=== PATIENT | male | born 1935 | race Caucasian/White ===

== ENCOUNTER 2016-10-19 16:59 | Inpatient (IN) | payer MEDICARE, BC ==
[~2016-10-19] VITALS: Ht 177.8 cm; Wt 79.4 kg
[2016-10-19 17:19] VITALS: BP 124/107
[2016-10-19 17:45] VITALS: BP 68/45
[2016-10-19 18:18] VITALS: BP 73/36
[2016-10-19 18:48] LABS: MEAN CORPUSCULAR HEMOGLOBIN 31.8 PG (27.0-31.0); MEAN CORPUSCULAR HGB CONC 30.8 G/DL (32.0-36.0); MEAN CORPUSCULAR VOLUME 103 FL (80-99); MEAN PLATELET VOLUME 6.5 FL (6.5-10.1); PLATELET COUNT 179 K/UL (150-450); RED BLOOD COUNT 3.16 M/UL (4.70-6.10); RED CELL DISTRIBUTION WIDTH 15.5 % (11.6-14.8); WHITE BLOOD COUNT 2.7 K/UL (4.8-10.8)
[2016-10-19] MEDS ORDERED: Lidocaine 1% MPF 10mg/ml 5ml ONE (18:50)
[2016-10-19 19:04] VITALS: BP 74/34
--- NOTE | 2016-10-19 19:07 | Emergency Room Report ---
History of Present Illness General Chief Complaint: Altered Level of Consciousness Source: EMS Present Illness HPI 81 YO M BIBEMS for ?AMS, hypotension. Patient missed last dialysis. Was vomiting today. gave HTN medication as scheduled. No other history available as no other family member presents. EMS endorses HTN, DM, ESRD on HD. Allergies: Coded Allergies: No Known Allergies (Unverified , 10/19/16) Patient History Past Medical History: DM, renal disease Past Surgical History: unable to obtain Social History: Denies: alcohol use, drug use, smoking Reviewed Nursing Documentation: PMH: Agreed, PSxH: Agreed Nursing Documentation-PMH Hx Cardiac Problems: Yes - CHF Hx Hypertension: Yes Hx Pacemaker: Yes Hx COPD: Yes Hx Diabetes: Yes - ESRD Hx Gastrointestinal Problems: Yes Hx Dialysis: Yes History Of Psychiatric Problem: No Hx Neurological Problems: No Hx Cerebrovascular Accident: Yes Review of Systems All Other Systems: limited Physical Exam Vital Signs Date Time Temp Pulse Resp B/P Pulse Ox O2 Delivery O2 Flow Rate FiO2 10/19/16 16:59 107 18 61/43 78 Room Air 10/19/16 19:04 15.0 Sp02 EP Interpretation: reviewed, abnormal General Appearance: normal inspection, well appearing, no apparent distress, alert, GCS 15, non-toxic Head: normocephalic, atraumatic Eyes: bilateral eye EOMI, bilateral eye PERRL ENT: normal ENT inspection, hearing grossly normal, normal voice Neck: normal inspection, full range of motion, supple, no bony tend Respiratory: normal inspection, lungs clear, normal breath sounds, no respiratory distress, no retraction, no wheezing Cardiovascular #1: regular rate, rhythm, no edema Gastrointestinal: normal inspection, normal bowel sounds, non tender, soft, no guarding, no hernia Genitourinary: no CVA tenderness Musculoskeletal: normal inspection, back normal, normal range of motion, Hitesh' s Sign negative Neurologic: normal inspection, alert, oriented x3, responsive, 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 Hypotensive. Afebrile. DDx includes CVA, ACS, infection, metabolic abnormality Patient is oriented x time and place and person. Comprehensive physical exam completed, atraumatic. Unreliable history from patient. Labs include CBC chem panel, CT head, EKG 12 lead and constant cardiac rhythm strip monitoring, IV established. Airway adequately maintained by patient upon arrival. EKG reveals ventricular paced rhythm Physician spent 345 minutes of direct critical care time monitoring patient's respiratory, cardiac and neurological status, reassessment, review of imaging, labs and discussion with attending hospitalist. Care also included dw famly, PMD, start of levophed pressor Does not include procedures Central Line Central Line : Consent: Emergent Central Line Lumen: triple Maximal Sterile Barrier Tech: yes cap, yes mask, yes sterile gown, yes sterile gloves, yes large sterile sheet, yes hand hygiene, yes chlorhexidine prep No Max Barrier Tech Because: emergency insertion Central Line Postion: femoral (R) Anesthesia: Lidocaine Complications: none Central Line Post Position: sutured, good blood return Attempts: One Patient Tolerated: Well Complications: None Medical Decision Making Medicare Attestation I Joan Woodson MD hereby attest that the medical record entry for date of service, 09/12/16 accurately reflects signatures/notations that I made in my capacity as MD when I treated/diagnosed the above listed Medicare beneficiary. I attest that this information is true, accurate and complete to the best of my knowledge. I understand that any falsification, omission, or concealment of material fact may subject me to administrative, civil, or criminal liability. This patient warrants hospital admission for extreme of age and has a condition that cannot be treated as outpatient. Diagnostic Impression: Primary Impression: Altered level of consciousness Additional Impression: Hypotension Qualified Codes: I95.9 - Hypotension, unspecified ER Course 81 YO M with hypotension, AMS. Afebrile. RNs unable to get peripheral Iv access Crash right femoral central line obtained as patient critically ill (see procedure note) IVF bolus and IV levophed gtt started PLAN Cardiac, O2 monitor, labs, CT head, ECG, likely admission EKG Diagnostic Results Rate: other - ventricular paced ST Segments: no acute changes ASA given to the pt in ED: No Rhythm Strip Diag. Results EP Interpretation: yes Rate: 96 Rhythm: NSR, no PVC's, no ectopy Chest X-Ray Diagnostic Results EP Interpretation: Yes Findings: no consolidation, no effusion, no pneumothorax, no acute cardiopulmonary disease Number of Views: 1 Reevaluation Time: 20:21 Last Vital Signs Date Time Temp Pulse Resp B/P Pulse Ox O2 Delivery O2 Flow Rate FiO2 10/19/16 19:04 103 18 74/34 73 Non-Rebreather 15.0 Status: improved Reevaluation Impression Labs: No leuks. Stabl;e H&H. Troponin is 1.5 (Trop baseline is 0.8 per PMD). HyperK 5.1 Serum Cr 6.5 Assessment: NSTEMI as ?cause of hypoxia, hypotension. IVF NOT bolused as history of CHF and EF 15% as per recent ECHO Patient on Elliquis per PMD PLAN Central line placed Plavix given for NSTEMI - no lovenox as patient on elliquis. Coags pending Cx placed to Dr Mejía for Cardiology - agrees with plan for Plavix HyperK tx with albuterol, Calcium Needs HD Patient maintaining O2 sat on Bipap Hypotension supported by levophed pressors Endorsed to Dr Jarquin for ICU admission for NSTEMI, CKD, hypotnesion, hypoxia Disposition: ADMITTED INPATIENT Condition: Critical Referrals: NON PHYSICIAN (PCP) JOAN WOODSON M.D. Oct 19, 2016 19:07
[2016-10-19 19:10] LABS: ALANINE AMINOTRANSFERASE 5 U/L (3-41); ALBUMIN/GLOBULIN RATIO 1.1 (1.0-2.7); ANION GAP 18 (5-15); ASPARTATE AMINO TRANSFERASE 13 U/L (5-40); CALCIUM 9.1 mg/dL (8.6-10.2); CARBON DIOXIDE 23 mEQ/L (20-30); CHLORIDE 97 mEQ/L (98-107); CREATININE 6.5 mg/dL (0.7-1.2); HEMOLYSIS 4; POTASSIUM 5.1 mEQ/L (3.4-4.9); SODIUM 138 mEQ/L (135-145); TOTAL PROTEIN 5.2 g/dL (6.6-8.7)
[2016-10-19 19:20] LABS: CKMB 9.8 ng/mL (< 6.7)
[2016-10-19 19:22] LABS: TROPONIN I 1.51 ng/mL (<=0.30)
[2016-10-19] MEDS ORDERED: Albuterol ud Inhalation HHN ONE (19:30)
[2016-10-19] MEDS ORDERED: Calcium Gluconate 1gm/10ml vial IVP ONE (19:30)
[2016-10-19 19:59] VITALS: BP 102/54
[2016-10-19] MEDS ORDERED: Enoxaparin 80mg Inj SUBQ ONE (20:15)
[2016-10-19] MEDS ORDERED: Miralax 17gm pkt ORAL PRN (21:15)
[2016-10-19] MEDS ORDERED: DuoNeb 0.5-3(2.5)mg/3ml neb HHN PRN (21:15)
[2016-10-19] MEDS ORDERED: PRO-AMATINE2.5 MG ORAL (22:06)
[2016-10-19] MEDS ORDERED: ELIQUIS2.5 MG PO (22:06)
[2016-10-19] MEDS ORDERED: AMIODARONE HCL100 MG ORAL (22:06)
[2016-10-19] MEDS ORDERED: NORCO 7.5/3251 EA ORAL (22:06)
[2016-10-19] MEDS ORDERED: DICYCLOMINE HCL25 GM MC (22:06)
[2016-10-19] MEDS ORDERED: ZOFRAN4 M1 ORAL (22:06)
[2016-10-19] MEDS ORDERED: CLONAZEPAM0.5 M1 PO (22:06)
[2016-10-19] MEDS ORDERED: AMITRIPTYLINE H10 MG ORAL (22:06)
[2016-10-19] MEDS ORDERED: PENTOXIFYLLINE400 MG ORAL (22:06)
[2016-10-19] MEDS ORDERED: LINZESS145 MCG PO (22:06)
[2016-10-19] MEDS ORDERED: FUROSEMIDE20 M1 ORAL (22:06)
[2016-10-19] MEDS ORDERED: TEMAZEPAM22.5 MG PO (22:06)
[2016-10-19 22:37] LABS: ANISOCYTOSIS 1+; BAND NEUTROPHILS % (MANUAL) 18 % (0-8); BASOPHILS % (MANUAL) 1 % (0-2); EOSINOPHILS % (MANUAL) 0 % (0-3); HYPOCHROMASIA 1+; LYMPHOCYTES % (MANUAL) 22 % (20-45); NEUTROPHILS % (MANUAL) 49 % (45-75); PLATELET ESTIMATE ADEQUATE; PLATELET MORPHOLOGY NORMAL; TOTAL CELLS COUNTED 100
[2016-10-19 23:09] VITALS: BP 105/86
--- NOTE | 2016-10-19 23:39 | Consultation ---
Consult Note Consult Note PAST MEDICAL HISTORY:He has been on Eliquis for chronic atrial fibrillationchronic pleural effusion status post PleurX placement bilaterally. 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 FAMILY AND SOCIAL HISTORY: Consistent with coronary artery disease and diabetes of his parents. He does not smoke. Denies alcohol or drug abuse currently. He is with 3 children. He is retired. ALLERGIES: Allergic to Remeron, being confused and having severe headache on it. Cephalexin, difficulty with breathing and erythema all over his body, but he is able to tolerate Rocephin with no difficulty. nstemi? demand recrrent n/v esrd on hd 2 times per week cad sc/p cabg subbsequent pci osteal lad adn osteal ramus aicha hx of bioperthetic avr afib ic implantation chronic pleurae effusion with pleurex catheter encepahlopaty serial enzyme ekg bipapa suppoort faily wish full code adn suppoer t may need intubation if intolerant of bipap blood cx may need empiric abx kylah jami manzano d/w eer SANTIAGO Yu Oct 19, 2016 23:39
[2016-10-20] VITALS (96 sets, daily range): BP systolic 58–124; BP diastolic 19–96
[2016-10-20] MEDS ORDERED: Levophed 4mg/4mL Inj IV ONE ×2 (01:35→05:17)
[2016-10-20] MEDS ORDERED: Gabapentin 300 MG/6 ML Soln ORAL SCH (03:00)
[2016-10-20 06:09] LABS: MEAN CORPUSCULAR HEMOGLOBIN 32.5 PG (27.0-31.0); MEAN CORPUSCULAR HGB CONC 31.1 G/DL (32.0-36.0); MEAN CORPUSCULAR VOLUME 105 FL (80-99); MEAN PLATELET VOLUME 6.7 FL (6.5-10.1); PLATELET COUNT 268 K/UL (150-450); RED BLOOD COUNT 3.19 M/UL (4.70-6.10); RED CELL DISTRIBUTION WIDTH 16.2 % (11.6-14.8); WHITE BLOOD COUNT 11.8 K/UL (4.8-10.8)
[2016-10-20] MEDS: NovoLOG Insulin Flexpen SUBQ SCH ×4 (06:30→20:47)
[2016-10-20 07:01] LABS: TROPONIN I 8.98 ng/mL (<=0.30)
[2016-10-20 07:10] LABS: ANION GAP 24 (5-15); CALCIUM 9.3 mg/dL (8.6-10.2); CARBON DIOXIDE 20 mEQ/L (20-30); CHLORIDE 94 mEQ/L (98-107); CREATININE 6.7 mg/dL (0.7-1.2); HEMOLYSIS 4; PHOSPHORUS 6.1 mg/dL (2.5-4.8); POTASSIUM 5.5 mEQ/L (3.4-4.9); SODIUM 138 mEQ/L (135-145)
[2016-10-20] MEDS ORDERED: Heparin 25,000u/D5W 500ml 500 ML IV SCH (07:30)
[2016-10-20] MEDS: Aspirin Baby 81mg ORAL SCH (08:29)
[2016-10-20] MEDS ORDERED: Heparin 5000 units/ml inj IV ONE (08:30)
[2016-10-20] MEDS: Heparin 25,000 units/D5W 500ml (ACS/MI) IV SCH (08:31)
[2016-10-20] MEDS ORDERED: Heparin 5000 units/ml inj SUBQ SCH (09:00)
--- NOTE | 2016-10-20 10:56 | Pulmonolgy Critical Care Note ---
Critical Care - Asmt/Plan Problems: (1) Multi-organ failure with heart failure (2) Septic shock (3) ESRF (end stage renal failure) (4) Recurrent right pleural effusion (5) AICD (automatic cardioverter/defibrillator) present (6) Hypotension (7) Altered level of consciousness Respiratory: monitor respiratory rate, adjust FIO2, CXR, other - pt refsuisng bipap Cardiac: continue pressors, continue to monitor HR/BP Renal: F/U I&O, keep IV fluid Infectious Disease: check cultures, continue antibiotics Gastrointestinal: continue feedings/current rate Endocrine: monitor blood sugar, continue sliding scale insulin Hematologic: monitor H/H, transfuse if hgb<8.5 Neurologic: PRN Ativan, keep patient comfortable Affect: PRN ativan Prophylaxis: Protonix, Heparin Disposition: keep in ICU Notes Reviewed: renal Discussed with: nurses, consultants, case management social workerclinical team manager - Objective Last 24 Hour Vital Signs Date Time Temp Pulse Resp B/P Pulse Ox O2 Delivery O2 Flow Rate FiO2 10/20/16 08:57 93/56 10/20/16 07:00 105 25 100/56 95 Non-Rebreather 100 10/20/16 06:45 104 30 106/56 95 Non-Rebreather 100 10/20/16 06:35 Non-Rebreather 15.0 100 10/20/16 06:30 108 26 84/50 95 Non-Rebreather 100 10/20/16 06:15 108 31 96/63 95 Non-Rebreather 100 10/20/16 06:00 106 31 87/55 95 Non-Rebreather 100 10/20/16 05:45 103 31 98/61 94 Non-Rebreather 100 10/20/16 05:30 105 28 88/56 94 Non-Rebreather 100 10/20/16 05:23 58/35 10/20/16 05:15 78 27 58/35 94 Non-Rebreather 100 10/20/16 05:00 94 30 87/58 94 Non-Rebreather 100 10/20/16 04:45 94 31 89/58 94 Non-Rebreather 100 10/20/16 04:30 88 28 87/54 92 Non-Rebreather 100 10/20/16 04:15 74 28 103/80 94 Non-Rebreather 100 10/20/16 04:00 71 1/12/17 04:00 98.1 70 31 99/68 94 Non-Rebreather 100 10/20/16 03:45 70 28 79/50 92 Non-Rebreather 100 10/20/16 03:30 81 27 77/44 92 Non-Rebreather 100 10/20/16 03:15 84 26 96/58 90 Non-Rebreather 100 10/20/16 03:00 85 28 85/57 90 Non-Rebreather 100 10/20/16 02:45 85 27 93/56 93 Non-Rebreather 100 10/20/16 02:30 84 31 81/62 93 Non-Rebreather 100 10/20/16 02:15 91 30 73/41 90 Non-Rebreather 100 10/20/16 02:00 95 27 92/68 91 Non-Rebreather 100 10/20/16 01:45 98 28 72/52 91 Non-Rebreather 100 10/20/16 01:44 96/54 10/20/16 01:30 97 28 67/28 91 Non-Rebreather 100 10/20/16 01:15 93 31 79/19 93 Non-Rebreather 100 10/20/16 01:00 101 28 81/22 93 Non-Rebreather 100 10/20/16 00:45 100 25 104/71 92 Non-Rebreather 100 10/20/16 00:30 101 27 83/49 92 Non-Rebreather 100 10/20/16 00:15 97 28 99/70 91 Non-Rebreather 100 10/20/16 00:00 97.5 100 26 99/66 93 Non-Rebreather 100 10/20/16 00:00 100 10/19/16 23:24 98 32 105/86 94 Bi-pap 15.0 100 10/19/16 23:09 98 32 105/86 94 Bi-pap 15.0 100 10/19/16 23:00 Non-Rebreather 15.0 100 10/19/16 23:00 97 Non-Rebreather 15.0 100 10/19/16 20:20 107/72 10/19/16 20:16 95 31 100 Bi-pap 100 10/19/16 20:04 96 31 100 Bi-pap 100 10/19/16 19:59 101 31 102/54 100 Mechanical Ventilator 15.0 10/19/16 19:45 92/64 10/19/16 19:30 97 36 93 Facial 100 10/19/16 19:30 Non-Rebreather 10/19/16 19:30 Non-Rebreather 10/19/16 19:19 73/34 10/19/16 19:04 103 18 74/34 73 Non-Rebreather 15.0 10/19/16 18:18 93 18 73/36 93 Room Air 10/19/16 17:45 93 18 68/45 92 Room Air 10/19/16 17:19 70 18 124/107 92 Room Air 10/19/16 16:59 107 18 61/43 78 Room Air Status: awake Condition: critical, grave HEENT: atraumatic Neck: full ROM Lungs: clear, chest wall tender Heart: HR/BP stable, regular Abdomen: soft, non-tender, active bowel sounds Extremities: no C/C/E Accucheck: 159 Critical Care - Subjective ROS Limited/Unobtainable: Yes ICU Day: 2 Interval Events: 81 year old male with hx of ESRF, end stage Heart disease with ICD, apparently he started with nausea and vomiting a few days ago and missed his HD. Then he developed dyspnea, paramedics were called and he was taken to ER of [facility] He was hypotensive, started on levophed and bipap. Currently pt is refusing bipap. I get the PMHx through my conversation with the PMd at [facility]. Condition: critical EKG Rhythm: Sinus Rhythm FI02: 100 Sputum Amount: None Drips: Levophed, heparin I&O: Intake and Output 10/19/16 10/20/16 19:00 07:00 Intake Total 1692.5 ml Balance 1692.5 ml Intake Oral 30 ml IV Total 1662.5 ml CXR: large right effusion, chest tube/ Labs: Laboratory Tests Test 10/19/16 18:30 10/20/16 04:30 10/20/16 08:45 White Blood Count 2.7 K/UL (4.8-10.8) L 11.8 K/UL (4.8-10.8) #H Red Blood Count 3.16 M/UL (4.70-6.10) L 3.19 M/UL (4.70-6.10) L Hemoglobin 10.0 G/DL (14.2-18.0) L 10.4 G/DL (14.2-18.0) L Hematocrit 32.6 % (42.0-52.0) L 33.4 % (42.0-52.0) L Mean Corpuscular Volume 103 FL (80-99) H 105 FL (80-99) H Mean Corpuscular Hemoglobin 31.8 PG (27.0-31.0) H 32.5 PG (27.0-31.0) H Mean Corpuscular Hemoglobin Concent 30.8 G/DL (32.0-36.0) L 31.1 G/DL (32.0-36.0) L Red Cell Distribution Width 15.5 % (11.6-14.8) H 16.2 % (11.6-14.8) H Platelet Count 179 K/UL (150-450) 268 K/UL (150-450) Mean Platelet Volume 6.5 FL (6.5-10.1) 6.7 FL (6.5-10.1) Neutrophils (%) (Auto) % (45.0-75.0) % (45.0-75.0) Lymphocytes (%) (Auto) % (20.0-45.0) % (20.0-45.0) Monocytes (%) (Auto) % (1.0-10.0) % (1.0-10.0) Eosinophils (%) (Auto) % (0.0-3.0) % (0.0-3.0) Basophils (%) (Auto) % (0.0-2.0) % (0.0-2.0) Differential Total Cells Counted 100 Neutrophils % (Manual) 49 % (45-75) Lymphocytes % (Manual) 22 % (20-45) Monocytes % (Manual) 10 % (1-10) Eosinophils % (Manual) 0 % (0-3) Basophils % (Manual) 1 % (0-2) Band Neutrophils 18 % (0-8) H Platelet Estimate Adequate Platelet Morphology Normal Hypochromasia 1+ Anisocytosis 1+ Sodium Level 138 mEQ/L (135-145) 138 mEQ/L (135-145) Potassium Level 5.1 mEQ/L (3.4-4.9) H 5.5 mEQ/L (3.4-4.9) H Chloride Level 97 mEQ/L (98-107) L 94 mEQ/L (98-107) L Carbon Dioxide Level 23 mEQ/L (20-30) 20 mEQ/L (20-30) Anion Gap 18 (5-15) H 24 (5-15) H Blood Urea Nitrogen 46 mg/dL (7-23) H 50 mg/dL (7-23) H Creatinine 6.5 mg/dL (0.7-1.2) H 6.7 mg/dL (0.7-1.2) H Estimat Glomerular Filtration Rate mL/min (>60) mL/min (>60) Glucose Level 87 mg/dL (74-106) 220 mg/dL (74-106) #H Lactic Acid Level 1.90 mmol/L (0.66-2.22) Calcium Level 9.1 mg/dL (8.6-10.2) 9.3 mg/dL (8.6-10.2) Total Bilirubin 0.4 mg/dL (0.0-1.2) Aspartate Amino Transf (AST/SGOT) 13 U/L (5-40) Alanine Aminotransferase (ALT/SGPT) 5 U/L (3-41) Alkaline Phosphatase 94 U/L (40-129) Total Creatine Kinase 70 U/L (38-174) Creatine Kinase MB 9.8 ng/mL (< 6.7) H Creatine Kinase MB Relative Index 14.0 Troponin I 1.51 ng/mL (<=0.30) *H 8.98 ng/mL (<=0.30) *H Total Protein 5.2 g/dL (6.6-8.7) L Albumin 2.8 g/dL (3.5-5.2) L 2.9 g/dL (3.5-5.2) L Globulin 2.4 g/dL Albumin/Globulin Ratio 1.1 (1.0-2.7) Digoxin Level < 0.3 ng/mL (0.5-2.0) L Phosphorus Level 6.1 mg/dL (2.5-4.8) H Activated Partial Thromboplast Time 37 SEC (23-33) H MATT WALKER Oct 20, 2016 10:56
[2016-10-20 11:05] LABS: INR 1.2 (0.9-1.1)
--- NOTE | 2016-10-20 11:08 | Wound Care Consultation ---
Wound Assessment Wound Assessment #1: Wound Number: #1 Wound Present on Admission: Yes New Wound: No Status Change of Wound: No Wound Location Body Site Modif: mid Wound Location Body Site: sacral Wound Type: pressure ulcer Abhay Test: Does not Abhay Pressure Ulcer Stage: deep tissue injury Wound Thickness: Full Thickness Wound Length: 9.0 Wound Width: 8.0 Wound Depth: utd Percent of Wound Switzer/Red: 50 Percent of Wound Purple/Maroon: 50 Wound Drainage Amount: None Wound Drainage Odor: None/Absent Tissue Surrounding Wound: Erythemic Wound General Appearance: Reddened Wound Assessment #2: Wound Number: #2 Wound Present on Admission: Yes New Wound: No Status Change of Wound: No Wound Location Body Site Modif: left Wound Location Body Site: arm Wound Type: traumatic injury Abhay Test: Does not Abhay Wound Thickness: Full Thickness Wound Length: 1.0 Wound Width: 1.0 Wound Depth: 0.2 Percent of Wound Switzer/Red: 100 Wound Drainage Amount: None Wound Drainage Odor: None/Absent Tissue Surrounding Wound: Erythemic Wound General Appearance: Reddened Wound Assessment #3: Wound Number: #3 Wound Present on Admission: Yes New Wound: No Status Change of Wound: No Wound Location Body Site Modif: left Wound Location Body Site: knee Wound Type: traumatic injury Abhay Test: Does not Abhay Wound Thickness: Full Thickness Wound Length: 1.0 Wound Width: 1.0 Wound Depth: 0.2 Percent of Wound Switzer/Red: 50 Percent of Wound Purple/Maroon: 50 Wound Drainage Amount: None Wound Drainage Odor: None/Absent Tissue Surrounding Wound: Erythemic Wound General Appearance: Reddened Wound Assessment #4: Wound Number: #4 Wound Present on Admission: Yes New Wound: No Status Change of Wound: No Wound Location Body Site Modif: left Wound Location Body Site: knee Wound Type: scab - thick scab Abhay Test: Does not Abhay Wound Thickness: Full Thickness Wound Length: 1.0 Wound Width: 1.0 Wound Depth: utd Percent of Wound Bed Yellow/Wh: 50 Percent of Wound Black/Brown: 50 Wound Drainage Odor: None/Absent Tissue Surrounding Wound: Erythemic Wound General Appearance: Blackened Wound Assessment #5: Wound Number: #5 Wound Present on Admission: Yes New Wound: No Status Change of Wound: No Wound Location Body Site Modif: left Wound Location Body Site: toe - 3rd Wound Type: other - Diabetic ulcer. Abhay Test: Does not Abhay Wound Thickness: Full Thickness Wound Length: 1.0 Wound Width: 1.0 Wound Depth: utd Percent of Wound Black/Brown: 100 Wound Drainage Amount: None Wound Drainage Odor: None/Absent Tissue Surrounding Wound: Intact Wound General Appearance: Necrotic Wound Assessment #6: Wound Number: #6 Wound Present on Admission: Yes New Wound: No Status Change of Wound: No Wound Location Body Site Modif: right Wound Location Body Site: toe - 2nd Wound Type: other - Diabetic ulcer Abhay Test: Does not Abhay Wound Thickness: Full Thickness Wound Length: 1.5 Wound Width: 1.0 Wound Depth: utd Percent of Wound Black/Brown: 100 Wound Drainage Amount: None Wound Drainage Odor: None/Absent Tissue Surrounding Wound: Intact Wound General Appearance: Blackened Wound Assessment #7: Wound Number: #7 Wound Present on Admission: Yes New Wound: No Status Change of Wound: No Wound Location Body Site Modif: right Wound Location Body Site: toe - 3rd Wound Type: other - Diabetic ulcer Abhay Test: Does not Abhay Wound Thickness: Full Thickness Wound Length: 0.3 Wound Width: 0.3 Wound Depth: utd Percent of Wound Black/Brown: 100 Wound Drainage Amount: None Wound Drainage Odor: None/Absent Tissue Surrounding Wound: Intact Wound General Appearance: Blackened - scab Wound Assessment #8: Wound Number: #9 Wound Present on Admission: Yes New Wound: No Status Change of Wound: No Wound Location Body Site Modif: right Wound Location Body Site: toe - 5th Wound Type: other - Diabetic ulcer. Abhay Test: Does not Abhay Wound Thickness: Full Thickness Wound Length: 1.0 Wound Width: 1.0 Wound Depth: utd Percent of Wound Black/Brown: 100 Wound Drainage Amount: None Wound Drainage Odor: None/Absent Tissue Surrounding Wound: Intact Wound General Appearance: Blackened - scab. Wound Assessment #9: Wound Number: #9 Wound Present on Admission: Yes Status Change of Wound: No Wound Location Body Site Modif: right, lower Wound Location Body Site: foot Wound Type: other - scattered red skin throughout foot ,skin intact Wound Drainage Amount: None Wound Drainage Odor: None/Absent Tissue Surrounding Wound: Intact Wound General Appearance: Reddened Wound Assessment #10: Wound Number: #10 Wound Present on Admission: Yes New Wound: No Status Change of Wound: No Wound Location Body Site Modif: left, lower Wound Location Body Site: foot Wound Type: other - scattered red skin throughout foot , skin intact Wound Drainage Amount: None Wound Drainage Odor: None/Absent Tissue Surrounding Wound: Intact Wound General Appearance: Reddened Wound Comment #1 Mid Sacral pressure ulcer Deep Tissue Injury. #2 Left forearm traumatic injury.(skin tear) #3 Left knee traumatic injury.(skin tear). #4 Left knee scab. #5 Left 3rd toe Diabetic Ulcer. #6 Right 2nd toe Diabetic Ulcer. #7 Right 3rd toe Diabetic Ulcer, #8 Right 5th toe Diabetic Ulcer. #9 Right foot scattered red skin, skin intact,dry #10 Left foot scattered red skin, skin intact,dry Recommendation. -Apply low air loss with AP. -Local wound care as ordered. -Keep dry,skin moisturized. -Keep clean and dry. -Turn and reposition. -Optimize nutrition. -Heel protectors. -Offload affected wound sites. -Assess and notify MD if any changes are noted. - HUANG HUSAIN Oct 20, 2016 11:08
[2016-10-20] MEDS: Pantoprazole Inj IVP SCH (11:29)
[2016-10-20] MEDS ORDERED: Vancomycin 1250mg/D5W 250ml IVPB ONE ×2 (13:00)
--- NOTE | 2016-10-20 13:43 | Diagnostic Imaging Report ---
Indications: Altered mental status Technique: Continuous helical CT imaging of the brain was performed with nonionic exposure control on a Siemens sensation [address] scanner. Axial and coronal images were reconstructed at 5 mm slice thickness and interval. CTDI volume(s): 70 mGy Total DLP: 1530 mGy-cm Findings: Comparison: None Confluent low attenuation is present in the bilateral periventricular white matter. Wedge-shaped, peripherally based 3.5 cm area of low attenuation/parenchymal loss lateral aspect left parietal lobe. Ventricles, cisterns, and sulci are diffusely prominent. No evidence of mass or hemorrhage, mass effect, midline shift, hydrocephalus, or increased intracranial pressure. Bone window images are unremarkable. Visualized paranasal sinuses and mastoid air cells are clear. IMPRESSION: No evidence of acute intracranial pathology Subacute to chronic infarct left parietal lobe. Bilateral cerebral periventricular white matter low attenuation, nonspecific, likely chronic microvascular ischemic in nature. Atrophy This correlates with preliminary report generated overnight by Dr. Downs. The CT scanner at [facility] is accredited by the [employer] and the scans are performed using protocols designed to limit radiation exposure to as low as reasonably achievable to attain images of sufficient resolution adequate for diagnostic evaluation.
--- NOTE | 2016-10-20 14:13 | Consultation ---
Consult Note Consult Note asked to eval for dialysis management- 81 YO M BIBEMS for ?AMS, hypotension. Patient missed last dialysis. Was vomiting today. gave HTN medication as scheduled. No other history available as no other family member presents. EMS endorses HTN, DM, ESRD on HD. Patient History Past Medical History: DM, renal disease Hx Cardiac Problems: Yes - CHF Hx Hypertension: Yes Hx Pacemaker: Yes Hx COPD: Yes Hx Diabetes: Yes - ESRD Hx Gastrointestinal Problems: Yes Hx Dialysis: Yes Hx Cerebrovascular Accident: Yes h/o ESRD Not dialysed for a few days- In ICU - HypoTensive- daughter present- lethargic has 2 chest tubes- clamped- has 2 fistula on his arms - right usable Assessment/Plan status: (1) Multi-organ failure with heart failure (2) Septic shock (3) ESRF (end stage renal failure) (4) Recurrent right pleural effusion (5) AICD (automatic cardioverter/defibrillator) present (6) Hypotension (7) Altered level of consciousness Plan; HD today- continue per PMD, consultants- Poor Prognosis HUONG WALKER Oct 20, 2016 14:13
[2016-10-20] MEDS: Aztreonam Inj 0.25 GM in D5W 55 ML IVPB SCH ×2 (15:18→22:10)
--- NOTE | 2016-10-20 16:10 | Diagnostic Imaging Report ---
Indications: DYSPNEA Technique: Portable AP chest at 1355 Findings: Comparison: 08 100 Catheter compatible chest tube is now noted projecting over the right lung base, presumably within the pleural space. Right costophrenic angle blunting, lateral right pleural thickening, and haziness over right hemithorax compatible with pleural effusion all again noted. Blunting of left costophrenic angle compatible small pleural effusion now also noted. Cardiac silhouette remains enlarged. Bony vascular redistribution, bilateral interstitial infiltrates unchanged. IMPRESSION: Chest tube in region of basal aspect of right pleural space Persistence right pleural effusion suggesting chest tube malfunction versus loculation Development versus better demonstration of small left pleural effusion Background bilateral congestive changes unchanged
[2016-10-20] MEDS ORDERED: Tubing IV Secondary IV ONE (16:19)
[2016-10-20] MEDS ORDERED: D5W 275ml ONE (16:19)
--- NOTE | 2016-10-20 17:52 | Diagnostic Imaging Report ---
Indications: Status post left thoracentesis Technique: Portable upright AP chest at 1721 Findings: Comparison: 1355 Left pleural effusion has decreased. No pneumothorax identified. Right pleural-parenchymal changes unchanged. IMPRESSION: Decrease in left pleural effusion but no pneumothorax following left thoracentesis No other change from earlier exam
[2016-10-20 19:03] LABS: APPEARANCE, BODY FLUID CLEAR; BD FL SOURCE THORACENTESIS; BD FL VOLUME 600 mL; BODY FLUID NUCLEATED CELLS 67 /CUMM; BODY FLUID RBC 223 /CUMM; POLYMORPHONUCLEAR WBC 24 %
[2016-10-20 19:04] LABS: MONONUCLEAR WBC 62 %
--- NOTE | 2016-10-20 19:09 | History & Physical ---
History and Physical History & Physicial Dictated for Int Med-Dr Jarquin ICU no. [id number]. SYDNEY MOSCOSO Oct 20, 2016 19:09
--- NOTE | 2016-10-20 19:16 | Cardiology Progress Note ---
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 aicha 2011 hx of bioprosthetic avr afib icd implantation chronic pleural effusion with pleurex catheter encepahlopaty did not not toelrate bipap last ntie d/w rn on severl occcison presor starteds i did nto start dobutamin in light of mi trop thism am higer need further seril enzyme and ekg empirci abx d/w dr joe now off bipap seem to be oxygenating s/p drainage of pleurex catheter d/w fmail;y remain in critical state on pressor double concentrate all ivpb cxr personlally reviewd telde reviwed echo noted poor lv fucntion need to repeat ekg is on iv heparin resum amiodareon dc plavix keep on ecotrin off eleiquis is on heparin will need transfer to [facility] for cth once hemodyamically stable and once bed avialbel meds discussed with pts restar midodrine 45 min duration Subjective Cardiovascular: Denies: chest pain, lightheadedness, palpitations Respiratory: Reports: shortness of breath Gastrointestinal/Abdominal: Denies: abdominal pain Subjective eels adn looks better Objective Last 24 Hour Vital Signs Date Time Temp Pulse Resp B/P Pulse Ox O2 Delivery O2 Flow Rate FiO2 10/20/16 18:30 104 27 102/61 91 Nasal Cannula 2.0 10/20/16 18:15 103 27 103/62 88 Nasal Cannula 2.0 10/20/16 18:00 71 24 89/53 83 Nasal Cannula 2.0 10/20/16 17:45 70 25 89/53 83 Nasal Cannula 2.0 10/20/16 17:30 70 28 90/41 84 Nasal Cannula 2.0 10/20/16 17:15 70 24 90/41 84 Nasal Cannula 2.0 10/20/16 17:00 72 30 104/46 84 Nasal Cannula 2.0 10/20/16 16:45 71 27 104/46 84 Nasal Cannula 2.0 10/20/16 16:30 70 29 83/55 82 Nasal Cannula 2.0 10/20/16 16:15 68 28 83/55 81 Nasal Cannula 2.0 10/20/16 16:00 64 10/20/16 16:00 98.2 64 27 83/55 97 Nasal Cannula 2.0 10/20/16 15:45 70 26 83/55 81 Nasal Cannula 2.0 10/20/16 15:44 85/42 10/20/16 15:30 70 26 72/47 81 Nasal Cannula 2.0 10/20/16 15:20 Nasal Cannula 2.0 28 10/20/16 15:15 70 27 63/36 84 Nasal Cannula 2.0 10/20/16 15:00 70 28 87/54 100 Nasal Cannula 2.0 10/20/16 15:00 87/54 10/20/16 14:45 70 27 88/53 85 Nasal Cannula 2.0 10/20/16 14:30 69 25 85/56 85 Nasal Cannula 2.0 10/20/16 14:15 84 27 85/50 98 Nasal Cannula 2.0 10/20/16 14:00 84 27 85/50 94 Nasal Cannula 2.0 10/20/16 14:00 85/50 10/20/16 13:45 84 26 85/51 86 Nasal Cannula 2.0 10/20/16 13:30 85 28 85/52 86 Nasal Cannula 2.0 10/20/16 13:15 85 28 85/55 90 Nasal Cannula 2.0 10/20/16 13:00 85/50 10/20/16 13:00 70 28 85/50 90 Nasal Cannula 2.0 10/20/16 12:45 70 29 85/48 86 Nasal Cannula 2.0 10/20/16 12:30 85 29 91/57 90 Nasal Cannula 2.0 10/20/16 12:15 85 30 87/54 90 Nasal Cannula 2.0 10/20/16 12:09 90/59 10/20/16 12:00 98.7 85 28 92/63 86 Nasal Cannula 2.0 10/20/16 12:00 86 10/20/16 11:45 85 28 90/59 90 Nasal Cannula 2.0 10/20/16 11:30 85 29 93/57 90 Nasal Cannula 2.0 10/20/16 11:15 85 28 109/85 90 Nasal Cannula 2.0 10/20/16 11:13 113/94 10/20/16 11:00 86 30 113/94 90 Nasal Cannula 2.0 10/20/16 10:45 86 29 98/63 85 Nasal Cannula 2.0 10/20/16 10:30 87 26 95/60 85 Nasal Cannula 2.0 10/20/16 10:15 75 28 67/42 84 Nasal Cannula 2.0 10/20/16 10:00 88 30 78/51 92 Nasal Cannula 2.0 10/20/16 10:00 95/59 10/20/16 09:45 88 28 95/59 92 Nasal Cannula 2.0 10/20/16 09:30 88 29 89/58 92 Nasal Cannula 2.0 10/20/16 09:15 88 29 92/58 92 Nasal Cannula 2.0 10/20/16 09:00 88 30 92/57 92 Nasal Cannula 2.0 10/20/16 09:00 92/57 10/20/16 08:57 93/56 10/20/16 08:45 88 30 87/54 91 Room Air 10/20/16 08:30 88 29 91/56 92 Room Air 10/20/16 08:15 88 27 85/70 92 Room Air 10/20/16 08:00 105 10/20/16 08:00 97.6 106 31 88/57 74 Room Air 10/20/16 08:00 85/70 10/20/16 07:45 107 29 89/59 93 Room Air 10/20/16 07:30 106 30 93/41 80 Room Air 10/20/16 07:15 105 21 95/42 95 Non-Rebreather 100 10/20/16 07:00 105 25 100/56 95 Non-Rebreather 100 10/20/16 06:45 104 30 106/56 95 Non-Rebreather 100 10/20/16 06:35 Non-Rebreather 15.0 100 10/20/16 06:30 108 26 84/50 95 Non-Rebreather 100 10/20/16 06:15 108 31 96/63 95 Non-Rebreather 100 10/20/16 06:00 106 31 87/55 95 Non-Rebreather 100 10/20/16 05:45 103 31 98/61 94 Non-Rebreather 100 10/20/16 05:30 105 28 88/56 94 Non-Rebreather 100 10/20/16 05:23 58/35 10/20/16 05:15 78 27 58/35 94 Non-Rebreather 100 10/20/16 05:00 94 30 87/58 94 Non-Rebreather 100 10/20/16 04:45 94 31 89/58 94 Non-Rebreather 100 10/20/16 04:30 88 28 87/54 92 Non-Rebreather 100 10/20/16 04:15 74 28 103/80 94 Non-Rebreather 100 10/20/16 04:00 71 10/20/16 04:00 98.1 70 31 99/68 94 Non-Rebreather 100 10/20/16 03:45 70 28 79/50 92 Non-Rebreather 100 10/20/16 03:30 81 27 77/44 92 Non-Rebreather 100 10/20/16 03:15 84 26 96/58 90 Non-Rebreather 100 10/20/16 03:00 85 28 85/57 90 Non-Rebreather 100 10/20/16 02:45 85 27 93/56 93 Non-Rebreather 100 10/20/16 02:30 84 31 81/62 93 Non-Rebreather 100 10/20/16 02:15 91 30 73/41 90 Non-Rebreather 100 10/20/16 02:00 95 27 92/68 91 Non-Rebreather 100 10/20/16 01:45 98 28 72/52 91 Non-Rebreather 100 10/20/16 01:44 96/54 10/20/16 01:30 97 28 67/28 91 Non-Rebreather 100 10/20/16 01:15 93 31 79/19 93 Non-Rebreather 100 10/20/16 01:00 101 28 81/22 93 Non-Rebreather 100 10/20/16 00:45 100 25 104/71 92 Non-Rebreather 100 10/20/16 00:30 101 27 83/49 92 Non-Rebreather 100 10/20/16 00:15 97 28 99/70 91 Non-Rebreather 100 10/20/16 00:00 97.5 100 26 99/66 93 Non-Rebreather 100 10/20/16 00:00 100 10/19/16 23:24 98 32 105/86 94 Bi-pap 15.0 100 10/19/16 23:09 98 32 105/86 94 Bi-pap 15.0 100 10/19/16 23:00 Non-Rebreather 15.0 100 10/19/16 23:00 97 Non-Rebreather 15.0 100 10/19/16 20:20 107/72 10/19/16 20:16 95 31 100 Bi-pap 100 10/19/16 20:04 96 31 100 Bi-pap 100 10/19/16 19:59 101 31 102/54 100 Mechanical Ventilator 15.0 10/19/16 19:45 92/64 10/19/16 19:30 97 36 93 Facial 100 10/19/16 19:30 Non-Rebreather 10/19/16 19:30 Non-Rebreather 10/19/16 19:19 73/34 10/19/16 19:04 103 18 74/34 73 Non-Rebreather 15.0 General Appearance: no apparent distress, patient on isolation, other - on dialyssi Neck: supple, JVD Cardiovascular: normal rate, regular rhythm Respiratory/Chest: decreased breath sounds Abdomen: normal bowel sounds, non tender, soft Extremities: moderate edema Intake and Output 10/19/16 10/20/16 19:00 07:00 Intake Total 1692.5 ml Balance 1692.5 ml Intake Oral 30 ml IV Total 1662.5 ml Laboratory Tests Test 10/20/16 04:30 10/20/16 08:45 10/20/16 16:20 White Blood Count 11.8 K/UL (4.8-10.8) #H Red Blood Count 3.19 M/UL (4.70-6.10) L Hemoglobin 10.4 G/DL (14.2-18.0) L Hematocrit 33.4 % (42.0-52.0) L Mean Corpuscular Volume 105 FL (80-99) H Mean Corpuscular Hemoglobin 32.5 PG (27.0-31.0) H Mean Corpuscular Hemoglobin Concent 31.1 G/DL (32.0-36.0) L Red Cell Distribution Width 16.2 % (11.6-14.8) H Platelet Count 268 K/UL (150-450) Mean Platelet Volume 6.7 FL (6.5-10.1) Neutrophils (%) (Auto) % (45.0-75.0) Lymphocytes (%) (Auto) % (20.0-45.0) Monocytes (%) (Auto) % (1.0-10.0) Eosinophils (%) (Auto) % (0.0-3.0) Basophils (%) (Auto) % (0.0-2.0) Sodium Level 138 mEQ/L (135-145) Potassium Level 5.5 mEQ/L (3.4-4.9) H Chloride Level 94 mEQ/L (98-107) L Carbon Dioxide Level 20 mEQ/L (20-30) Anion Gap 24 (5-15) H Blood Urea Nitrogen 50 mg/dL (7-23) H Creatinine 6.7 mg/dL (0.7-1.2) H Estimat Glomerular Filtration Rate mL/min (>60) Glucose Level 220 mg/dL (74-106) #H Calcium Level 9.3 mg/dL (8.6-10.2) Phosphorus Level 6.1 mg/dL (2.5-4.8) H Troponin I 8.98 ng/mL (<=0.30) *H Albumin 2.9 g/dL (3.5-5.2) L Prothrombin Time 12.0 SEC (9.30-11.50) H Prothromb Time International Ratio 1.2 (0.9-1.1) H Activated Partial Thromboplast Time 37 SEC (23-33) H Body Fluid Source Pending Body Fluid Volume Pending Body Fluid Appearance Pending Body Fluid RBC Pending Body Fluid Total Nucleated Cells Pending Body Fluid Polynuclear WBCs (%) Pending Body Fluid Mononuclear WBCs (%) Pending Body Fluid Mesothelial Cells (%) Pending Body Fluid Glucose Pending Body Fluid Total Protein Pending Body Fluid Albumin Pending SANTIAGO UGALDE Oct 20, 2016 19:16
[2016-10-20] MEDS: Midodrine 10mg tab ORAL SCH (20:17)
[2016-10-20] MEDS: Amiodarone 200mg tab ORAL SCH (20:17)
--- NOTE | 2016-10-20 20:51 | Cardiology Report ---
APPROVED REPORT EXAM: Two-dimensional and M-mode echocardiogram with Doppler and color Doppler. INDICATION Left ventricular function M-Mode DIMENSIONS IVSd0.8 (0.7-1.1cm)Left Atrium (MM)5.5 (1.6-4.0cm) LVDd7.7 (3.5-5.6cm)Aortic Root3.3 (2.0-3.7cm) PWd1.1 (0.7-1.1cm)Aortic Cusp Exc.1.5 (1.5-2.0cm) LVDs6.3 (2.5-4.0cm) PWs1.3 cm Technically difficult study due to poor acoustic windows. Severe left ventricular enlargement. Global left ventricular akinesia. Left ventricular ejection fraction is estimated at 10%. Severe left atrial enlargement by 2D. Mild right atrial enlargement by 2D. Mechanical aortic valve replacement with normal cusp excursion. Thickened mitral valve leaflets with normal excursion. Mild mitral annulus and aortic root calcification. Pulmonic valve not well visualized. Normal tricuspid valve structure. IVC not obtainable. Probable pacemaker wire present in the right side chambers. Moderate posterior pericardial effusion. A color flow and spectral Doppler study was performed and revealed: Trace aortic regurgitation. Peak aortic valve gradient of 25mm Hg and a mean of 14mmHg. Aortic valve area 1.4 cm2 calculated by continuity equation. Mild mitral regurgitation. Left ventricular diastolic dysfunction cannot be assessed due to lack of "a" wave. Trace tricuspid regurgitation. Tricuspid systolic velocities suggests peak right ventricular systolic pressure of 14 mmHg
[2016-10-20 21:41] LABS: TROPONIN I 3.72 ng/mL (<=0.30)
[2016-10-20] MEDS ORDERED: Norco 5mg/325mg tab ORAL PRN (23:15)
[2016-10-21] VITALS (74 sets, daily range): BP systolic 53–164; BP diastolic 34–147
--- NOTE | 2016-10-21 00:18 | History and Physical Report ---
DATE OF ADMISSION: 10/19/2016 CHIEF COMPLAINT: The patient is a 81-year-old white male with history of end-stage renal disease who presents with complaint of altered mental status and hypotension. HISTORY OF PRESENT ILLNESS: The patient himself has expressive aphasia. Much of the history and physical is obtained from the who is at the bedside. According to the , the patient missed his most recent dialysis. The patient began to have altered mental status. EMS was called. The patient was transported to [facility]. The patient was found to have an elevated potassium level. The patient was found to have elevated BUN and creatinine. The patient was found to have elevated troponin. The patient was admitted for elevated troponin to rule out acute myocardial infarction. PAST MEDICAL HISTORY: Significant for 1. End-stage renal disease, on hemodialysis. 2. Hypertension. 3. Diabetes type 2. 4. Atrial fibrillation on Eliquis. 5. Anemia of chronic disease. 6. Benign prostatic hypertrophy. 7. Chronic obstructive pulmonary disease. PAST SURGICAL HISTORY: Significant for above. 1. AICD placement. 2. Aortic valve replacement. 3. Transurethral resection of the prostate. CURRENT MEDICATIONS: 1. Amiodarone 200 mg one tablet p.o. q.8 hours. 2. Amitriptyline 10 mg one tablet p.o. at bedtime. 3. Eliquis 2.5 mg p.o. daily. 4. Klonopin 0.5 mg one tablet p.o. twice daily p.r.n. 5. . 6. Lasix 20 mg one tablet p.o. daily. 7. [place] 7.5/325 mg one tablet p.o. q.4 hours. 8. Linzess 145 mcg p.o. daily. 9. Midodrine 2.5 mg one tablet p.o. three times daily. 10. Trental 400 mg tablet p.o. at bedtime. 11. Temazepam 22.5 mg one tablet p.o. daily. ALLERGIES: 1. Remeron. 2. Keflex. SOCIAL HISTORY: The patient is . The patient denies tobacco or alcohol use. REVIEW OF SYSTEMS: Constitutional: The patient denies weight loss or weight gain. The patient denies fevers or chills. HEENT: The patient denies ear or throat pain. Cardiovascular: The patient denies palpitations or chest pain. Chest: The patient denies wheezing or shortness of breath. Abdomen: The patient denies nausea, vomiting, diarrhea, or constipation. Genitourinary: The patient denies dysuria or increased frequency of urination. Neuromuscular: The patient has altered mental status as above. The patient denies seizures or generalized weakness. PHYSICAL EXAMINATION: VITAL SIGNS: Temperature 98.2 degrees, respirations 27 to 30, pulse 64 to 72, and blood pressure elevated 83 to 104 over 46 to 55. GENERAL: The patient is a well-developed and well-nourished elderly white male, in no apparent distress. HEENT: Eyes, pupils are equal and responsive to light and accommodation. Extraocular movements are intact. NECK: Supple. No lymphadenopathy. CHEST: Lungs are clear to auscultation bilaterally without wheezes or rales. CARDIOVASCULAR: . S1 and S2 normal without murmurs, rubs, or gallops. ABDOMEN: Soft, nontender, and nondistended. Positive bowel sounds. No evidence of hepatosplenomegaly. Currently, no rebound or guarding. EXTREMITIES: Negative for clubbing, cyanosis, or edema. RECTAL: Refused. GENITALIA: Refused. NEUROLOGIC: the patient does have expressive aphasia. LABORATORY STUDIES: WBC 2.7, hemoglobin 10.0, hematocrit 32.6, platelets 179,000. Sodium 138, potassium elevated at 5.1, chloride 97, CO2 of 23, BUN 46, creatinine 6.5, glucose 87. Troponin elevated 1.51. Chest x-ray, right pleural effusion and bilateral interstitial infiltrates. ASSESSMENT: This is a 81-year-old white male. 1. Bilateral pneumonia. 2. Right pleural effusion. 3. Altered mental status. 4. Hypotension. 5. End-stage renal disease. 6. Diabetes. 7. Elevated troponin. 8. . 9. Congestive heart failure. 10. Atrial fibrillation. 11. Anemia of chronic disease. 12. Automatic implanted cardioverter defibrillator in situ. TREATMENT: 1. Bilateral pneumonia, the patient has been placed empirically on vancomycin. Sputum cultures are pending. Pulmonary consultation obtained with Dr. Rakesh Earl M.D. 2. Right pleural effusion. A chest tube is in place on the right. We will follow recommendation of pulmonary as above. 3. Altered mental status may be secondary to hypotension and/or sepsis. 4. Hypotension, this maybe septic shock versus cardiogenic shock. A Cardiology consultation obtained with Dr. Mina Bentley. The patient has been started empirically on vancomycin. 5. End-stage renal disease. A Nephrology consultation obtained with Dr. Gilliam. The patient will require emergent dialysis. 6. Diabetes, the patient has been placed on NovoLog sliding scale. 7. Elevated troponin as above. A Cardiology consultation obtained with Dr. Mina Bentley. 8. Hypertension, the patient is currently hypotensive. 9. Congestive heart failure. 10. Atrial fibrillation. Eliquis has been discontinued for now. We will follow recommendation of Cardiology as above. 11. Anemia of chronic disease. 12. Automatic implanted cardioverter defibrillator in situ. Alhaji Valverde M.D. DR: Tomas JOB#: [id number] CC:
[2016-10-21 05:25] LABS: BASOPHILS % (AUTO) 0.4 % (0.0-2.0); LYMPHOCYTES % (AUTO) 10.2 % (20.0-45.0); MEAN CORPUSCULAR HEMOGLOBIN 32.7 PG (27.0-31.0); MEAN CORPUSCULAR HGB CONC 32.1 G/DL (32.0-36.0); MEAN CORPUSCULAR VOLUME 102 FL (80-99); MEAN PLATELET VOLUME 7.3 FL (6.5-10.1); MONOCYTES % (AUTO) 5.4 % (1.0-10.0); PLATELET COUNT 244 K/UL (150-450); RED BLOOD COUNT 2.88 M/UL (4.70-6.10); RED CELL DISTRIBUTION WIDTH 15.3 % (11.6-14.8); WHITE BLOOD COUNT 17.8 K/UL (4.8-10.8)
[2016-10-21] MEDS: Aztreonam Inj 0.25 GM in D5W 55 ML IVPB SCH ×2 (05:55→17:36)
[2016-10-21] MEDS: NovoLOG Insulin Flexpen SUBQ SCH ×3 (06:01→16:30)
[2016-10-21 06:08] LABS: ALANINE AMINOTRANSFERASE 50 U/L (3-41); ASPARTATE AMINO TRANSFERASE 117 U/L (5-40); CARBON DIOXIDE 22 mEQ/L (20-30); CHLORIDE 94 mEQ/L (98-107); CREATININE 6.2 mg/dL (0.7-1.2); HEMOLYSIS 7; MAGNESIUM 1.8 mg/dL (1.7-2.5); PHOSPHORUS 6.5 mg/dL (2.5-4.8); SODIUM 136 mEQ/L (135-145); TOTAL PROTEIN 5.3 g/dL (6.6-8.7)
[2016-10-21 06:16] LABS: ANION GAP 20 (5-15)
[2016-10-21 06:24] LABS: POTASSIUM 6.1 mEQ/L (3.4-4.9)
[2016-10-21 06:57] LABS: TROPONIN I 6.97 ng/mL (<=0.30)
[2016-10-21 08:51] LABS: COMMENT,BODY FLUID PATHOLOGIST COMMENT
[2016-10-21] MEDS: Midodrine 10mg tab ORAL SCH ×3 (09:15→17:44)
[2016-10-21] MEDS: Pantoprazole Inj IVP SCH (09:15)
[2016-10-21] MEDS: Aspirin Baby 81mg ORAL SCH (09:15)
[2016-10-21] MEDS: Amiodarone 200mg tab ORAL SCH (09:15)
[2016-10-21] MEDS: Heparin 25,000 units/D5W 500ml (ACS/MI) IV SCH (09:23)
--- NOTE | 2016-10-21 10:53 | Pulmonolgy Critical Care Note ---
Critical Care - Asmt/Plan Problems: (1) Multi-organ failure with heart failure (2) Septic shock (3) ESRF (end stage renal failure) (4) Recurrent right pleural effusion (5) AICD (automatic cardioverter/defibrillator) present (6) Hypotension (7) Altered level of consciousness Respiratory: monitor respiratory rate, adjust FIO2, CXR, other - thoracentesis at [facility] today Cardiac: continue pressors, continue to monitor HR/BP Renal: F/U I&O, check electrolytes - HD today Infectious Disease: check cultures, continue antibiotics Gastrointestinal: continue feedings/current rate Endocrine: monitor blood sugar Hematologic: monitor H/H, transfuse if hgb<8.5 Neurologic: PRN Ativan, PRN Morphine, keep patient comfortable Affect: PRN ativan Disposition: keep in ICU Notes Reviewed: 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, 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 Discussed with: nurses, consultants, disease case manager rnmarketing programs manager - Objective Last 24 Hour Vital Signs Date Time Temp Pulse Resp B/P Pulse Ox O2 Delivery O2 Flow Rate FiO2 10/21/16 10:15 70 28 92/47 94 Nasal Cannula 3.0 10/21/16 10:00 85 30 83/49 96 Nasal Cannula 3.0 10/21/16 10:00 83/49 10/21/16 09:45 71 23 75/35 94 Nasal Cannula 3.0 10/21/16 09:30 70 24 96/51 96 Nasal Cannula 3.0 10/21/16 09:15 72 29 99/49 93 Nasal Cannula 3.0 10/21/16 09:00 100/54 10/21/16 09:00 103 29 100/54 95 Nasal Cannula 3.0 10/21/16 08:45 102 28 104/47 95 Nasal Cannula 3.0 10/21/16 08:30 101 26 104/49 96 Nasal Cannula 3.0 10/21/16 08:15 101 25 90/45 93 Nasal Cannula 3.0 10/21/16 08:00 97.4 101 27 101/45 94 Nasal Cannula 3.0 10/21/16 08:00 101 10/21/16 08:00 101/45 10/21/16 07:45 100 25 97/52 96 Nasal Cannula 3.0 10/21/16 07:30 99 27 98/47 93 Nasal Cannula 3.0 10/21/16 07:15 71 25 95/48 92 Nasal Cannula 3.0 10/21/16 07:00 97.8 71 28 95/48 88 Nasal Cannula 3.0 10/21/16 07:00 95/48 10/21/16 06:57 107/50 10/21/16 06:45 71 28 107/50 88 Nasal Cannula 3.0 10/21/16 06:30 70 28 102/58 88 Nasal Cannula 3.0 10/21/16 06:15 71 28 98/54 88 Nasal Cannula 3.0 10/21/16 06:00 70 28 102/58 88 Nasal Cannula 3.0 10/21/16 05:55 81/45 10/21/16 05:45 70 28 53/40 88 Nasal Cannula 3.0 10/21/16 05:30 85 28 83/47 88 Nasal Cannula 3.0 10/21/16 05:15 71 28 81/45 88 Nasal Cannula 3.0 10/21/16 05:00 84/49 10/21/16 05:00 73 28 83/47 88 Nasal Cannula 3.0 10/21/16 04:59 71 28 84/49 88 Nasal Cannula 3.0 10/21/16 04:45 71 28 84/56 88 Nasal Cannula 3.0 10/21/16 04:30 73 28 84/49 88 Nasal Cannula 3.0 10/21/16 04:15 71 28 86/43 88 Nasal Cannula 3.0 10/21/16 04:00 98.0 73 28 82/45 88 Nasal Cannula 3.0 10/21/16 04:00 73 10/21/16 04:00 82/45 10/21/16 03:45 84 28 74/46 88 Nasal Cannula 3.0 10/21/16 03:30 83 28 78/40 88 Nasal Cannula 3.0 10/21/16 03:15 99 28 85/56 88 Nasal Cannula 3.0 10/21/16 03:00 102 28 97/45 88 Nasal Cannula 3.0 10/21/16 03:00 97/45 10/21/16 02:45 102 28 94/52 88 Nasal Cannula 3.0 10/21/16 02:30 102 28 94/54 88 Nasal Cannula 3.0 10/21/16 02:15 103 28 99/66 88 Nasal Cannula 3.0 10/21/16 02:07 90/56 10/21/16 02:00 103 28 90/56 88 Nasal Cannula 3.0 10/21/16 01:45 104 28 90/56 88 Nasal Cannula 3.0 10/21/16 01:30 104 28 99/66 88 Nasal Cannula 3.0 10/21/16 01:15 104 28 93/63 88 Nasal Cannula 3.0 10/21/16 01:15 96 16 95 3.0 10/21/16 01:00 105 28 92/50 88 Nasal Cannula 3.0 10/21/16 01:00 92/52 10/21/16 00:45 104 28 92/52 88 Nasal Cannula 3.0 10/21/16 00:30 103 28 95/63 88 Nasal Cannula 3.0 10/21/16 00:15 103 28 95/62 88 Nasal Cannula 3.0 10/21/16 00:00 105 10/21/16 00:00 93/62 10/21/16 00:00 98.0 103 28 93/62 88 Nasal Cannula 3.0 10/20/16 23:45 105 28 91/56 88 Nasal Cannula 3.0 10/20/16 23:30 96 16 95 3.0 10/20/16 23:30 104 28 81/46 88 Nasal Cannula 3.0 10/20/16 23:15 105 28 81/55 88 Nasal Cannula 3.0 10/20/16 23:00 88 28 73/46 88 Nasal Cannula 3.0 10/20/16 22:57 96/63 10/20/16 22:45 91 21 96/63 87 Nasal Cannula 3.0 10/20/16 22:30 92 26 124/96 89 Nasal Cannula 3.0 10/20/16 22:15 92 27 109/69 89 Nasal Cannula 3.0 10/20/16 22:00 93 25 109/68 93 Nasal Cannula 3.0 10/20/16 22:00 109/68 10/20/16 21:45 93 20 106/64 88 Nasal Cannula 3.0 10/20/16 21:30 93 26 102/69 88 Nasal Cannula 3.0 10/20/16 21:15 79 23 86/30 89 Nasal Cannula 3.0 10/20/16 21:00 86/30 10/20/16 21:00 103 14 99 3.0 10/20/16 21:00 93 27 86/30 81 Nasal Cannula 3.0 10/20/16 20:45 93 29 106/67 82 Nasal Cannula 3.0 10/20/16 20:30 93 30 81/64 82 Nasal Cannula 3.0 10/20/16 20:15 105 27 81/64 86 Nasal Cannula 3.0 10/20/16 20:00 97.2 112 31 111/71 86 Nasal Cannula 3.0 10/20/16 20:00 101 10/20/16 20:00 110/62 10/20/16 19:58 Nasal Cannula 10/20/16 19:45 111 27 118/73 82 Nasal Cannula 3.0 10/20/16 19:30 98 27 112/71 82 Nasal Cannula 3.0 10/20/16 19:18 58/26 10/20/16 19:15 97 28 112/71 81 Nasal Cannula 3.0 10/20/16 19:00 Nasal Cannula 3.0 32 10/20/16 19:00 96 27 96/49 91 Nasal Cannula 2.0 10/20/16 19:00 96 Nasal Cannula 3.0 32 10/20/16 19:00 109 16 96 3.0 10/20/16 19:00 91/45 10/20/16 18:45 100 26 96/49 91 Nasal Cannula 2.0 10/20/16 18:30 104 27 102/61 91 Nasal Cannula 2.0 10/20/16 18:15 103 27 103/62 88 Nasal Cannula 2.0 10/20/16 18:00 103/62 10/20/16 18:00 71 24 89/53 83 Nasal Cannula 2.0 10/20/16 17:50 Nasal Cannula 10/20/16 17:45 70 25 89/53 83 Nasal Cannula 2.0 10/20/16 17:30 70 28 90/41 84 Nasal Cannula 2.0 10/20/16 17:15 70 24 90/41 84 Nasal Cannula 2.0 10/20/16 17:00 72 30 104/46 84 Nasal Cannula 2.0 10/20/16 17:00 90/41 10/20/16 16:45 71 27 104/46 84 Nasal Cannula 2.0 10/20/16 16:30 70 29 83/55 82 Nasal Cannula 2.0 10/20/16 16:15 68 28 83/55 81 Nasal Cannula 2.0 10/20/16 16:00 64 10/20/16 16:00 72/47 10/20/16 16:00 98.2 64 27 83/55 97 Nasal Cannula 2.0 10/20/16 15:45 70 26 83/55 81 Nasal Cannula 2.0 10/20/16 15:44 85/42 10/20/16 15:30 70 26 72/47 81 Nasal Cannula 2.0 10/20/16 15:20 Nasal Cannula 2.0 28 10/20/16 15:15 70 27 63/36 84 Nasal Cannula 2.0 10/20/16 15:00 70 28 87/54 100 Nasal Cannula 2.0 10/20/16 15:00 87/54 10/20/16 14:45 70 27 88/53 85 Nasal Cannula 2.0 10/20/16 14:30 69 25 85/56 85 Nasal Cannula 2.0 10/20/16 14:15 84 27 85/50 98 Nasal Cannula 2.0 10/20/16 14:00 84 27 85/50 94 Nasal Cannula 2.0 10/20/16 14:00 85/50 10/20/16 13:45 84 26 85/51 86 Nasal Cannula 2.0 10/20/16 13:30 85 28 85/52 86 Nasal Cannula 2.0 10/20/16 13:15 85 28 85/55 90 Nasal Cannula 2.0 10/20/16 13:00 85/50 10/20/16 13:00 70 28 85/50 90 Nasal Cannula 2.0 10/20/16 12:45 70 29 85/48 86 Nasal Cannula 2.0 10/20/16 12:30 85 29 91/57 90 Nasal Cannula 2.0 10/20/16 12:15 85 30 87/54 90 Nasal Cannula 2.0 10/20/16 12:09 90/59 10/20/16 12:00 98.7 85 28 92/63 86 Nasal Cannula 2.0 10/20/16 12:00 86 10/20/16 11:45 85 28 90/59 90 Nasal Cannula 2.0 10/20/16 11:30 85 29 93/57 90 Nasal Cannula 2.0 10/20/16 11:15 85 28 109/85 90 Nasal Cannula 2.0 10/20/16 11:13 113/94 10/20/16 11:00 86 30 113/94 90 Nasal Cannula 2.0 Status: awake Condition: critical HEENT: atraumatic Lungs: clear Heart: HR/BP stable, HR/BP unstable Abdomen: soft, non-tender Extremities: no C/C/E, edema Micro: Microbiology Date/Time Source Procedure Growth Status 10/19/16 18:30 Blood Blood Culture - Preliminary NO GROWTH AFTER 24 HOURS Resulted 10/19/16 18:15 Blood Blood Culture - Preliminary NO GROWTH AFTER 24 HOURS Resulted 10/20/16 16:20 Ascities Fluid Gram Stain Pending Resulted 10/20/16 16:20 Ascities Fluid Body Fluid Culture - Preliminary NO GROWTH Resulted Accucheck: 105 Critical Care - Subjective ROS Limited/Unobtainable: No - awak ICU Day: awake, looks comfortable Condition: critical EKG Rhythm: Sinus Rhythm FI02: 32 Sputum Amount: None Fluids: Levophed drip 22 ug I&O: Intake and Output 10/20/16 10/21/16 19:00 07:00 Intake Total 1508.288 ml 898.384 ml Output Total 0 ml 927 ml Balance 1508.288 ml -28.616 ml Intake Oral 100 ml 80 ml IV Total 1408.288 ml 818.384 ml Output Urine Total 0 ml 0 ml Hemodialysis UF 927 ml CXR: worsening right effusion Labs: Laboratory Tests Test 10/20/16 16:20 10/20/16 21:00 10/21/16 04:40 10/21/16 08:45 Body Fluid Source Thoracentesis Body Fluid Volume 600 mL Body Fluid Appearance Clear Body Fluid RBC 223 /CUMM Body Fluid Total Nucleated Cells 67 /CUMM Body Fluid Polynuclear WBCs (%) 24 % Body Fluid Mononuclear WBCs (%) 62 % Body Fluid Mesothelial Cells (%) 14 % Body Fluid Glucose Pending Body Fluid Total Protein Pending Body Fluid Albumin Pending Body Fluid Comment Pathologist comment Activated Partial Thromboplast Time 87 SEC (23-33) H 68 SEC (23-33) H Troponin I 3.72 ng/mL (<=0.30) *H 6.97 ng/mL (<=0.30) *H White Blood Count 17.8 K/UL (4.8-10.8) #H Red Blood Count 2.88 M/UL (4.70-6.10) L Hemoglobin 9.4 G/DL (14.2-18.0) L Hematocrit 29.3 % (42.0-52.0) L Mean Corpuscular Volume 102 FL (80-99) H Mean Corpuscular Hemoglobin 32.7 PG (27.0-31.0) H Mean Corpuscular Hemoglobin Concent 32.1 G/DL (32.0-36.0) Red Cell Distribution Width 15.3 % (11.6-14.8) H Platelet Count 244 K/UL (150-450) Mean Platelet Volume 7.3 FL (6.5-10.1) Neutrophils (%) (Auto) 84.0 % (45.0-75.0) H Lymphocytes (%) (Auto) 10.2 % (20.0-45.0) L Monocytes (%) (Auto) 5.4 % (1.0-10.0) Eosinophils (%) (Auto) 0.0 % (0.0-3.0) Basophils (%) (Auto) 0.4 % (0.0-2.0) Sodium Level 136 mEQ/L (135-145) Potassium Level 6.1 mEQ/L (3.4-4.9) *H 6.1 mEQ/L (3.4-4.9) *H Chloride Level 94 mEQ/L (98-107) L Carbon Dioxide Level 22 mEQ/L (20-30) Anion Gap 20 (5-15) H Blood Urea Nitrogen 48 mg/dL (7-23) H Creatinine 6.2 mg/dL (0.7-1.2) H Estimat Glomerular Filtration Rate mL/min (>60) Glucose Level 110 mg/dL (74-106) #H Calcium Level 9.0 mg/dL (8.6-10.2) Phosphorus Level 6.5 mg/dL (2.5-4.8) H Magnesium Level 1.8 mg/dL (1.7-2.5) Total Bilirubin 1.0 mg/dL (0.0-1.2) Aspartate Amino Transf (AST/SGOT) 117 U/L (5-40) H Alanine Aminotransferase (ALT/SGPT) 50 U/L (3-41) H Alkaline Phosphatase 123 U/L (40-129) Total Protein 5.3 g/dL (6.6-8.7) L Albumin 2.7 g/dL (3.5-5.2) L Globulin 2.6 g/dL Albumin/Globulin Ratio 1.0 (1.0-2.7) MATT WALKER Oct 21, 2016 10:53
[2016-10-21 12:33] LABS: INR 1.4 (0.9-1.1)
[2016-10-21 13:41] LABS: ABG PCO2 36.3 mmHg (35.0-45.0)
[2016-10-21 13:42] LABS: ABG BASE EXCESS -5.3
--- NOTE | 2016-10-21 14:13 | Diagnostic Imaging Report ---
Indication: Dyspnea Comparison: 10/20/16 A single view chest radiograph was obtained. Findings: Hazy right pulmonary opacity demonstrated probably pleural effusion. There is evidence of mild pulmonary edema. Cardiomegaly is present but stable. In pression: No significant meter changes records clerk the last day
[2016-10-21 16:12] LABS: TROPONIN I 5.61 ng/mL (<=0.30)
[2016-10-21] MEDS ORDERED: Tubing IV Secondary IV ONE (18:38)
[2016-10-21] MEDS ORDERED: NS 275ml ONE (18:38)
[2016-10-21] MEDS ORDERED: D5W 275ml ONE (18:38)
[2016-10-21] MEDS ORDERED: Sodium Bicarbonate 8.4% 50ml Carp ONE (19:09)
[2016-10-21] MEDS ORDERED: EPINEPHrine 1mg/10ml carp IV ONE (19:09)
[2016-10-21] MEDS ORDERED: Calcium Chloride 10% 10ml carpuject IVP ONE (19:09)
[2016-10-21] MEDS ORDERED: Zemuron 50mg/5ml Inj IV ONE (19:09)
[2016-10-21] MEDS ORDERED: Nimbex 2mg/ml Inj 10ML IVP ONE (19:09)
--- NOTE | 2016-10-21 19:33 | Cardiology Progress Note ---
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 afib icd implantation chronic pleural effusion with pleurex catheter encepahlopaty came by to see pt noted acls bcls in progress has apparentlyhad arrrest on goign resusitation for 15-20 priro to february arrival echo personally reviewed md continued acls and bcsl but pt did nto respond was pronounced Subjective ROS Limited/Unobtainable: Yes Subjective cpr inm progress with acls Objective Last 24 Hour Vital Signs Date Time Temp Pulse Resp B/P Pulse Ox O2 Delivery O2 Flow Rate FiO2 10/21/16 19:26 Room Air 10/21/16 19:26 Room Air 10/21/16 18:00 93 22 129/72 91 Nasal Cannula 3.0 10/21/16 17:45 94 27 124/45 90 Nasal Cannula 3.0 10/21/16 17:30 92 27 106/48 84 Nasal Cannula 3.0 10/21/16 17:15 101 27 120/36 84 Nasal Cannula 3.0 10/21/16 17:00 100 27 125/36 84 Nasal Cannula 3.0 10/21/16 16:43 97.2 102 20 116/65 Nasal Cannula 3.0 10/21/16 16:15 Nasal Cannula 3.0 10/21/16 16:15 103 25 101/47 84 Nasal Cannula 3.0 10/21/16 16:00 97.2 101 23 101/47 93 Nasal Cannula 3.0 10/21/16 16:00 102 10/21/16 15:45 101 23 76/56 93 Nasal Cannula 3.0 10/21/16 15:30 99 26 85/44 93 Nasal Cannula 3.0 10/21/16 15:15 101 24 97/47 93 Nasal Cannula 3.0 10/21/16 15:00 101 20 129/63 93 Nasal Cannula 3.0 10/21/16 15:00 129/63 10/21/16 14:45 100 29 137/34 94 Nasal Cannula 3.0 10/21/16 14:30 164/147 10/21/16 14:30 101 27 164/147 95 Nasal Cannula 3.0 10/21/16 14:15 103 27 151/53 100 Nasal Cannula 3.0 10/21/16 14:00 103 27 150/46 100 Nasal Cannula 3.0 10/21/16 14:00 150/46 10/21/16 13:45 103 27 139/70 100 Nasal Cannula 3.0 10/21/16 13:45 139/70 10/21/16 13:30 70 30 132/39 100 Venturi Mask 50 10/21/16 13:30 132/39 10/21/16 13:15 70 30 157/40 100 Venturi Mask 50 10/21/16 13:15 157/40 10/21/16 13:10 Nasal Cannula 3.0 10/21/16 13:00 71 30 81/53 100 Venturi Mask 50 10/21/16 13:00 81/53 10/21/16 12:45 71 30 82/59 100 Venturi Mask 50 10/21/16 12:30 70 29 83/53 100 Venturi Mask 50 10/21/16 12:15 71 27 80/53 100 Venturi Mask 50 10/21/16 12:00 71 10/21/16 12:00 94/63 10/21/16 12:00 97.6 70 19 94/63 100 Venturi Mask 50 10/21/16 11:45 71 26 93/40 100 Venturi Mask 50 10/21/16 11:30 70 24 78/40 100 Venturi Mask 50 10/21/16 11:29 82/41 10/21/16 11:15 70 27 82/41 100 Venturi Mask 50 10/21/16 11:00 95/45 10/21/16 11:00 70 23 94/54 100 Room Air 10/21/16 10:45 71 24 95/45 94 Nasal Cannula 3.0 10/21/16 10:30 71 18 98/53 94 Nasal Cannula 3.0 10/21/16 10:15 70 28 92/47 94 Nasal Cannula 3.0 10/21/16 10:00 85 30 83/49 96 Nasal Cannula 3.0 10/21/16 10:00 83/49 10/21/16 09:45 71 23 75/35 94 Nasal Cannula 3.0 10/21/16 09:30 70 24 96/51 96 Nasal Cannula 3.0 10/21/16 09:15 72 29 99/49 93 Nasal Cannula 3.0 10/21/16 09:00 100/54 10/21/16 09:00 103 29 100/54 95 Nasal Cannula 3.0 10/21/16 08:45 102 28 104/47 95 Nasal Cannula 3.0 10/21/16 08:30 101 26 104/49 96 Nasal Cannula 3.0 10/21/16 08:15 101 25 90/45 93 Nasal Cannula 3.0 10/21/16 08:00 97.4 101 27 101/45 94 Nasal Cannula 3.0 10/21/16 08:00 101 10/21/16 08:00 101/45 10/21/16 07:45 100 25 97/52 96 Nasal Cannula 3.0 10/21/16 07:30 Nasal Cannula 3.0 32 10/21/16 07:30 99 27 98/47 93 Nasal Cannula 3.0 10/21/16 07:30 96 Nasal Cannula 3.0 32 10/21/16 07:15 71 25 95/48 92 Nasal Cannula 3.0 10/21/16 07:00 97.8 71 28 95/48 88 Nasal Cannula 3.0 10/21/16 07:00 95/48 10/21/16 06:57 107/50 10/21/16 06:45 71 28 107/50 88 Nasal Cannula 3.0 10/21/16 06:30 70 28 102/58 88 Nasal Cannula 3.0 10/21/16 06:15 71 28 98/54 88 Nasal Cannula 3.0 10/21/16 06:00 70 28 102/58 88 Nasal Cannula 3.0 10/21/16 05:55 81/45 10/21/16 05:45 70 28 53/40 88 Nasal Cannula 3.0 10/21/16 05:30 85 28 83/47 88 Nasal Cannula 3.0 10/21/16 05:15 71 28 81/45 88 Nasal Cannula 3.0 10/21/16 05:00 84/49 10/21/16 05:00 73 28 83/47 88 Nasal Cannula 3.0 10/21/16 04:59 71 28 84/49 88 Nasal Cannula 3.0 10/21/16 04:45 71 28 84/56 88 Nasal Cannula 3.0 10/21/16 04:30 73 28 84/49 88 Nasal Cannula 3.0 10/21/16 04:15 71 28 86/43 88 Nasal Cannula 3.0 10/21/16 04:00 98.0 73 28 82/45 88 Nasal Cannula 3.0 10/21/16 04:00 73 10/21/16 04:00 82/45 10/21/16 03:45 84 28 74/46 88 Nasal Cannula 3.0 10/21/16 03:30 83 28 78/40 88 Nasal Cannula 3.0 10/21/16 03:15 99 28 85/56 88 Nasal Cannula 3.0 10/21/16 03:00 102 28 97/45 88 Nasal Cannula 3.0 10/21/16 03:00 97/45 10/21/16 02:45 102 28 94/52 88 Nasal Cannula 3.0 10/21/16 02:30 102 28 94/54 88 Nasal Cannula 3.0 10/21/16 02:15 103 28 99/66 88 Nasal Cannula 3.0 10/21/16 02:07 90/56 10/21/16 02:00 103 28 90/56 88 Nasal Cannula 3.0 10/21/16 01:45 104 28 90/56 88 Nasal Cannula 3.0 10/21/16 01:30 104 28 99/66 88 Nasal Cannula 3.0 10/21/16 01:15 104 28 93/63 88 Nasal Cannula 3.0 10/21/16 01:15 96 16 95 3.0 10/21/16 01:00 105 28 92/50 88 Nasal Cannula 3.0 10/21/16 01:00 92/52 10/21/16 00:45 104 28 92/52 88 Nasal Cannula 3.0 10/21/16 00:30 103 28 95/63 88 Nasal Cannula 3.0 10/21/16 00:15 103 28 95/62 88 Nasal Cannula 3.0 10/21/16 00:00 105 10/21/16 00:00 93/62 10/21/16 00:00 98.0 103 28 93/62 88 Nasal Cannula 3.0 10/20/16 23:45 105 28 91/56 88 Nasal Cannula 3.0 10/20/16 23:30 96 16 95 3.0 10/20/16 23:30 104 28 81/46 88 Nasal Cannula 3.0 10/20/16 23:15 105 28 81/55 88 Nasal Cannula 3.0 10/20/16 23:00 88 28 73/46 88 Nasal Cannula 3.0 10/20/16 22:57 96/63 10/20/16 22:45 91 21 96/63 87 Nasal Cannula 3.0 10/20/16 22:30 92 26 124/96 89 Nasal Cannula 3.0 10/20/16 22:15 92 27 109/69 89 Nasal Cannula 3.0 10/20/16 22:00 93 25 109/68 93 Nasal Cannula 3.0 10/20/16 22:00 109/68 10/20/16 21:45 93 20 106/64 88 Nasal Cannula 3.0 10/20/16 21:30 93 26 102/69 88 Nasal Cannula 3.0 10/20/16 21:15 79 23 86/30 89 Nasal Cannula 3.0 10/20/16 21:00 86/30 10/20/16 21:00 103 14 99 3.0 10/20/16 21:00 93 27 86/30 81 Nasal Cannula 3.0 10/20/16 20:45 93 29 106/67 82 Nasal Cannula 3.0 10/20/16 20:30 93 30 81/64 82 Nasal Cannula 3.0 10/20/16 20:15 105 27 81/64 86 Nasal Cannula 3.0 10/20/16 20:00 97.2 112 31 111/71 86 Nasal Cannula 3.0 10/20/16 20:00 101 10/20/16 20:00 110/62 10/20/16 19:58 Nasal Cannula 10/20/16 19:45 111 27 118/73 82 Nasal Cannula 3.0 Intake and Output 10/20/16 10/21/16 19:00 07:00 Intake Total 1508.288 ml 898.384 ml Output Total 0 ml 927 ml Balance 1508.288 ml -28.616 ml Intake Oral 100 ml 80 ml IV Total 1408.288 ml 818.384 ml Output Urine Total 0 ml 0 ml Hemodialysis UF 927 ml Laboratory Tests Test 10/20/16 21:00 10/21/16 04:40 10/21/16 08:45 10/21/16 12:00 Activated Partial Thromboplast Time 87 SEC (23-33) H 68 SEC (23-33) H 57 SEC (23-33) H Troponin I 3.72 ng/mL (<=0.30) *H 6.97 ng/mL (<=0.30) *H White Blood Count 17.8 K/UL (4.8-10.8) #H Red Blood Count 2.88 M/UL (4.70-6.10) L Hemoglobin 9.4 G/DL (14.2-18.0) L Hematocrit 29.3 % (42.0-52.0) L Mean Corpuscular Volume 102 FL (80-99) H Mean Corpuscular Hemoglobin 32.7 PG (27.0-31.0) H Mean Corpuscular Hemoglobin Concent 32.1 G/DL (32.0-36.0) Red Cell Distribution Width 15.3 % (11.6-14.8) H Platelet Count 244 K/UL (150-450) Mean Platelet Volume 7.3 FL (6.5-10.1) Neutrophils (%) (Auto) 84.0 % (45.0-75.0) H Lymphocytes (%) (Auto) 10.2 % (20.0-45.0) L Monocytes (%) (Auto) 5.4 % (1.0-10.0) Eosinophils (%) (Auto) 0.0 % (0.0-3.0) Basophils (%) (Auto) 0.4 % (0.0-2.0) Sodium Level 136 mEQ/L (135-145) Potassium Level 6.1 mEQ/L (3.4-4.9) *H 6.1 mEQ/L (3.4-4.9) *H Chloride Level 94 mEQ/L (98-107) L Carbon Dioxide Level 22 mEQ/L (20-30) Anion Gap 20 (5-15) H Blood Urea Nitrogen 48 mg/dL (7-23) H Creatinine 6.2 mg/dL (0.7-1.2) H Estimat Glomerular Filtration Rate mL/min (>60) Glucose Level 110 mg/dL (74-106) #H Calcium Level 9.0 mg/dL (8.6-10.2) Phosphorus Level 6.5 mg/dL (2.5-4.8) H Magnesium Level 1.8 mg/dL (1.7-2.5) Total Bilirubin 1.0 mg/dL (0.0-1.2) Aspartate Amino Transf (AST/SGOT) 117 U/L (5-40) H Alanine Aminotransferase (ALT/SGPT) 50 U/L (3-41) H Alkaline Phosphatase 123 U/L (40-129) Total Protein 5.3 g/dL (6.6-8.7) L Albumin 2.7 g/dL (3.5-5.2) L Globulin 2.6 g/dL Albumin/Globulin Ratio 1.0 (1.0-2.7) Prothrombin Time 14.0 SEC (9.30-11.50) H Prothromb Time International Ratio 1.4 (0.9-1.1) H Test 10/21/16 13:35 10/21/16 14:30 Arterial Blood pH 7.350 (7.350-7.450) Arterial Blood Partial Pressure CO2 36.3 mmHg (35.0-45.0) Arterial Blood Partial Pressure O2 155.6 mmHg (75.0-100.0) H Arterial Blood HCO3 19.6 mmol/L (22.0-26.0) L Arterial Blood Oxygen Saturation 96.2 % (92.0-98.0) Arterial Blood Base Excess -5.3 [place] Test N/a Troponin I 5.61 ng/mL (<=0.30) *H Microbiology Date/Time Source Procedure Growth Status 10/19/16 18:30 Blood Blood Culture - Preliminary NO GROWTH AFTER 24 HOURS Resulted 10/19/16 18:15 Blood Blood Culture - Preliminary NO GROWTH AFTER 24 HOURS Resulted 10/20/16 16:20 Ascities Fluid Gram Stain - Final Resulted 10/20/16 16:20 Ascities Fluid Body Fluid Culture - Preliminary NO GROWTH Resulted SANTIAGO UGALDE Oct 21, 2016 19:33
--- NOTE | 2016-10-21 20:07 | Emergency Room Report ---
History of Present Illness General Chief Complaint: Altered Level of Consciousness Source: Family Member, EMS Present Illness Allergies: Coded Allergies: CEPHALEXIN (Verified Allergy, Unknown, 10/20/16) SHELLFISH DERIVED (Verified Allergy, Unknown, 10/20/16) Nursing Documentation-H Hx Cardiac Problems: Yes Hx Hypertension: Yes Hx Pacemaker: Yes Hx COPD: Yes Hx Diabetes: Yes - ESRD Hx Gastrointestinal Problems: Yes Hx Dialysis: Yes History Of Psychiatric Problem: No Hx Neurological Problems: No Hx Cerebrovascular Accident: Yes Hx Syncope: Yes Hx Weakness: Yes Physical Exam Vital Signs Date Time Temp Pulse Resp B/P Pulse Ox O2 Delivery O2 Flow Rate FiO2 10/19/16 16:59 107 18 61/43 78 Room Air 10/19/16 19:04 15.0 10/19/16 19:30 100 10/20/16 00:00 97.5 Procedures Critical Care Time Critical Care Time i. I feel this is a highly complex case requiring extensive working including EKG/Rhythm strip, Xray/CT/US, Blood/urine lab work, repeat exams while in ED, and administration of strong opiates/narcotics for pain control, admission to hospital or close patient follow up. Total time: 30 min bedside evaluation and treatment excludes procedures (EKG). Reason for critical care: Unresponsive, pulseless, apneic Possible complications: hypotension, hypertension, PA, shock, arrhythmias, metabolic acidosis, end organ damage, respiratory failure. Interventions: Intubated, CPR, epinephrine, calcium, bicarbonate, dextrose Course: Patient lost pulses, apneic. CPR in progress. Patient has pacemaker. I intubated patient. Patient was critically low glucose. Given D50. Given epi x3. Given calcium and by car. Patient remains pulsess. Prognosis is poor. Resuscitative efforts terminated. Patient expires Consultations: nursing staff, EMS, family Performed by: Dr Ferrer Tolerated well condition = j. because of unstable vital signs this patient had a condition that could potentially threaten life or limb. I feel this is a critical patient who required my full attention while patient was considered critical. Total Critical Care Time excluding procedures was greater than 35 minutes CPR/Code Blue CPR/Code Blue Narrative CPR in progress upon my arrival. Patient is pacemaker. No pulse. Patient intubated. Accu-Chek critically low. Given D50. Given calcium and bicarbonate. Given epi x3. After multiple rounds of compressions patient remains pulseless. Prognosis is poor. Resuscitative efforts terminated. Patient expires Intubation Intubation : Consent: Emergent Intubation Method: orotracheal Tube Size (cm): 7.5 Breath Sounds after Intubation: equal Intubation Complications: no complications Post Intubation Xray: No - patient Attempts: One Patient Tolerated: Well Complications: None Medical Decision Making Diagnostic Impression: Primary Impression: Altered level of consciousness Additional Impressions: Hypotension Qualified Codes: I95.9 - Hypotension, unspecified Cardiac arrest ER Course CODE BLUE was called. Patient pulseless, chest compressions upon my arrival. Patient has pacemaker. Patient has history of congestive heart failure with very poor ejection fraction. History of dialysis- last dialyzed today. I intubated the patient. Accu-Chek was critically low. Given D50. Given calcium and bicarbonate. Given epinephrine x3. Between rhythm checks patient remains pulseless. After multiple rounds of resuscitation patient remains pulseless. Prognosis is poor. Resuscitative efforts terminated. Patient expires Last Vital Signs Date Time Temp Pulse Resp B/P Pulse Ox O2 Delivery O2 Flow Rate FiO2 10/21/16 19:26 Room Air 10/21/16 18:00 93 22 129/72 91 3.0 10/21/16 16:43 97.2 10/21/16 13:30 50 Status: worsened Disposition: Condition: Referrals: NON PHYSICIAN (PCP) JEAN-PIERRE FERRER M.D. Oct 21, 2016 20:07
[2016-10-21 21:09] LABS: PROTEIN, BODY FLUID 1.4 g/dL (.)
--- NOTE | 2016-10-22 08:29 | Diagnostic Imaging Report ---
Indications: Abnormal chest sounds Technique: Portable AP chest Findings: Comparison: None. Chest radiograph dated 10/19/16 under this patient's identification is a different patient. Cardiac silhouette enlarged. Pulmonary vascular redistribution. Bilateral interstitial infiltrates. Right pleural effusion. Suggestion of underlying parenchymal consolidation right mid and lower lung. Sternal wires. Left chest wall pacemaker. Overlying boiler maker leads. No other catheter or tube identifiable. Aortic arch calcified. IMPRESSION: Findings compatible with congestive heart failure with right pleural effusion. Underlying atelectasis or pneumonia in right lower lobe not excludable Lack of visualization of drainage tube/catheter, may be technically related. Consider repeat chest radiograph with optimization of technique for visualization of right hemithoracic anatomy. Previous open heart surgery Pacemaker Aortosclerosis
--- NOTE | 2016-10-22 08:30 | Diagnostic Imaging Report ---
Indications: Shortness of breath, pleural effusion Technique: Procedure, indications, risks and alternatives were explained to the patient's family who understands and gives consent to proceed. Per seizure performed at bedside. The left pleural space was surveyed sonographically. The skin over the posterior aspect of the left hemithorax was sterilely prepped and draped in usual fashion. Skin and subcutaneous soft tissues were infiltrated with 1% lidocaine and sodium bicarbonate. A small dermatotomy was made, through which an 8 [place] thoracentesis catheter was advanced under direct sonographic guidance into the left pleural space. Pleural fluid was maximally drained via vacuum apparatus.. Followup imaging was performed. Catheter was removed. Dermatotomy site was manually compressed to achieve stasis, then cleansed and bandaged. Patient tolerated the procedure well without immediate complications. Fluid was sent to laboratory and pathology for analysis, as ordered. Findings: Initial imaging demonstrates a moderate amount of fluid within the left pleural space. Post procedure imaging demonstrates resolution of fluid. Thoracentesis yields 560 cc of clear light yellow fluid. IMPRESSION: Ultrasound-guided left thoracentesis yielding 560 cc of of pleural fluid , laboratory and pathology results pending. Followup chest radiograph pending.
--- NOTE | 2016-10-23 19:50 | Cardiology Report ---
APPROVED REPORT EKG Measurement Heart [id number] AV sequential pacemaker Abnormal ECG
--- NOTE | 2016-10-24 15:31 | Discharge Summary ---
Discharge Summary Hospital Course Date of Admission Oct 19, 2016 at 17:38 Date of Discharge Oct 21, 2016 at 19:10 Admitting Diagnosis hypotension, AMS HPI Damien Dotson is a 81 year old male who was admitted on Oct 19, 2016 at 17:38 for Hypotension,Altered Mental Status Hospital Course summary dictated # [id number] Discharge Discharge Disposition Patient was discharged to Discharge Diagnoses: Discharge Instructions Discharge Instructions Special Instructions I have been assigned to complete a D/C Summary on this account. I was not involved in the patient management Daisy Mcelroy NP (Vanchtein) Oct 24, 2016 15:31
--- NOTE | 2016-10-25 05:27 | Discharge Summary 2 SIG ---
DATE OF ADMISSION: 10/19/2016 DATE OF EXPIRATION: 10/21/2016 CAUSE OF : Cardiopulmonary arrest. REASON FOR ADMISSION: 81 years old male was brought in for altered level of consciousness and hypertension. The patient with multiple chronic comorbidities including extensive cardiac disease, status post coronary artery bypass graft and subsequent percutaneous coronary intervention. He had AICD in place, chronic atrial fibrillation, as well as end-stage renal disease, on hemodialysis. He had history of hypertension and diabetes. Apparently, the patient missed last hemodialysis as scheduled, was vomited and brought to ED by emergency medical services for evaluation. In the emergency room, it was found the patient was hypotensive, with altered level of consciousness, afebrile, hypoxemic. Nonrebreathing mask applied. EKG revealed ventricular paced rhythm. Central line was placed in the right femoral line. Intravenous bolus was given. The patient was started on Levophed drip and transferred to ICU for further management. 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 Chest x-ray revealed findings compatible with congestive heart failure and right pleural effusion, pacemaker, previous open-heart surgery, and left chest wall pacemaker. ADMITTING DIAGNOSES: 1. Acute encephalopathy. 2. Bilateral pneumonia. 3. Right pleural effusion. 4. Hypotension. 5. Likely early septic shock 6. End-stage renal disease, on hemodialysis. 7. Anemia of chronic disease. 8. Atrial fibrillation. HOSPITAL COURSE: In the intensive care unit, the patient was on IV fluids and pressors. Troponin noted to be elevated. Initially, the first troponin was 1.51 and the patient was given Plavix. However, next subsequent troponin is 8.98 and then 3.72 then up again to 6.97. Dance Critic followed the patient. The patient was started on heparin drip per pharmacy. Initially, prior to admission, the patient was on Eliquis for atrial fibrillation, which was held initially due to anemia, but in lieu of new findings of non-STEMI the patient was started on the heparin drip per Cardiology. Hemodialysis was done as per Nephrology. Renal parameters, intake and output, electrolytes were all closely monitored. Echocardiogram revealed ejection fraction of 10% and right ventricular systolic pressure of 14. The patient was initially with non rebreathing mask, the was able to be weaned to nasal cannula. The patient was started on empiric antibiotics. Blood culture were negative. Patient undergone thoracentesis, which yielded 560 mL of pleural fluid. Thoracentesis was done of the left pleural effusion. Culture of the pleural fluid was negative. Chest x-ray post thoracentesis revealed no pneumothorax, but persistent right pleural effusion: Malfunctioning Pleurex catheter versus loculated effusion. Pulmonary toilet was provided . Follow up chest x- ray revealed persistent right pleural effusion. Chemist Steroids, podopediatrician and pulmonary all followed the patient. Blood sugar was managed with sliding scale of insulin. Hemoglobin and hematocrit were monitored closely. On 10/21/2016, the patient became unresponsive. Code Blue initiated. The patient was intubated. Accu-Chek was critically low. D50 was given. While the patient was intubated, no pulses were palpated. Calcium and bicarbonate given. Epinephrine given x3. After multiple rounds of compression, the patient remained pulseless. Prognosis was poor. Resuscitative efforts terminated and the patient pronounced at 19:09 ,cause of cardiopulmonary arrest. FINAL DIAGNOSES: 1. Multiorgan failure with heart failure. 2. Septic shock. 3. Non-ST Segment Elevation Myocardial Infarction. 4. 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 5. History of coronary artery disease with coronary artery bypass graft and subsequent percutaneous coronary intervention. 6. Atrial fibrillation. 7. End-stage renal disease, on hemodialysis. 8. Acute encephalopathy likely secondary to septic shock. 9. Bilateral pneumonia. 10. Persistent right pleural effusion/loculated versus malfunctioning of the Pleurex catheter. 11. Status post thoracentesis left pleural effusion (yielding 560 mL cubic centimeters of fluid. 12. Diabetes mellitus. 13. Chronic obstructive pulmonary disease. 14. Anemia of chronic disease. Itz Jarquin M.D. I have been assigned to dictate discharge summary on this account and I was not involved in the patient's management. Daisy Mcelroy (Vanchtein) N.PPrimitivo DR: DEB JOB#: [id number] CC: SYLVESTER
== END 2016-10-21 19:10 | disposition expired | DRG 871 ==
LOC: ENRESERVTM → ENRESERVDT → EDBD 16:59 → EMR 17:33 → ICU 17:38 → EDBEDREQ 19:00 → EDBEDREQTM 19:00 → EDBEDREQSVC 19:00 → EDBEDREQ 21:59
PROC: 06HM33Z Insertion of Infusion Device into Right Femoral Vein, Percutaneous Approach (ICD-10-PCS; principal; 2016-10-19)
PROC: 3E043XZ Introduction of Vasopressor into Central Vein, Percutaneous Approach (ICD-10-PCS; principal; 2016-10-19)
PROC: 0W9B3ZX Drainage of Left Pleural Cavity, Percutaneous Approach, Diagnostic (ICD-10-PCS; 2016-10-20)
PROC: 5A12012 Performance of Cardiac Output, Single, Manual (ICD-10-PCS; 2016-10-21)
PROC: 5A1D00Z (ICD-10-PCS; 2016-10-21)
PROC: 0BH17EZ Insertion of Endotracheal Airway into Trachea, Via Natural or Artificial Opening (ICD-10-PCS; 2016-10-21)
DX: A41.9 Sepsis, unspecified organism (principal); R65.21 Severe sepsis with septic shock; I21.4 Non-ST elevation (NSTEMI) myocardial infarction; G93.40 Encephalopathy, unspecified; J90 Pleural effusion, not elsewhere classified; J18.9 Pneumonia, unspecified organism; N18.6 End stage renal disease; I12.0 Hypertensive chronic kidney disease with stage 5 chronic kidney disease or end stage renal disease; I95.9 Hypotension, unspecified; D63.1 Anemia in chronic kidney disease; I50.9 Heart failure, unspecified; Z95.810 Presence of automatic (implantable) cardiac defibrillator; Z99.2 Dependence on renal dialysis; Z95.2 Presence of prosthetic heart valve; J44.9 Chronic obstructive pulmonary disease, unspecified; N40.0 Benign prostatic hyperplasia without lower urinary tract symptoms; I25.10 Atherosclerotic heart disease of native coronary artery without angina pectoris; Z95.1 Presence of aortocoronary bypass graft; I48.91 Unspecified atrial fibrillation; E11.9 Type 2 diabetes mellitus without complications
CPT/HCPCS: 36415; 36600; 70450; 71010; 76942; 80053; 80069; 80162; 82550; 82553; 82803; 82962; 83605; 83735; 84100; 84132; 84484; 85007; 85025; 85610; 85730; 87040; 87070; 87081; 87205; 88104; 89051; 92950; 93005; 93306; 94640; 94760; J0171; J1815; J2405